=== PATIENT | female | born 2000 | race Asian ===

== ENCOUNTER 2024-05-20 17:29 | Emergency (ER) | payer BC ==
[~2024-05-20] VITALS: Ht 165.1 cm; Wt 99.4 kg
[2024-05-20 19:17] LABS: BASO % 0.2 % (0.0-1.0); EOS # 0.2 10^3/uL (0.0-0.5); EOS % 1.4 % (0.0-3.0); HEMATOCRIT 36.8 % (36.0-47.0); HEMOGLOBIN 11.9 g/dl (12.0-15.5); LYMPH # 3.4 10^3/uL (1.5-5.0); LYMPH % 28.3 % (24.0-44.0); MEAN CORPUSCULAR HEMOGLOBIN 27.3 pg (27.0-33.0); MEAN CORPUSCULAR HGB CONC 32.3 g/dl (32.0-36.5); MEAN CORPUSCULAR VOLUME 84.4 fl (80.0-96.0); MONO # 0.8 10^3/uL (0.0-0.8); MONO % 6.3 % (2.0-8.0); NEUTROPHILS # 7.6 10^3/uL (1.5-8.5); NEUTROPHILS % 63.5 % (36.0-66.0); PLATELET COUNT, AUTOMATED 254 10^3/uL (150-450); RED BLOOD COUNT 4.36 10^6/uL (4.00-5.40)
[2024-05-20 19:18] LABS: KETONE, URINE AUTO RFX NEGATIVE (NEGATIVE)
[2024-05-20 19:38] LABS: LIPASE 25 U/L (12-53)
[2024-05-20 19:40] LABS: LEUKOCYTE ESTERASE UR AUTO RFX TRACE (NEGATIVE)
[2024-05-20 19:41] LABS: ALBUMIN 3.7 G/DL (3.2-5.2); ALKALINE PHOSPHATASE 88 U/L (35-104); ALT/SGPT 24 U/L (7.0-40); AST/SGOT 15 U/L (<34); BILIRUBIN,DIRECT < 0.1 MG/DL (<0.4); BILIRUBIN,TOTAL 0.3 MG/DL (0.3-1.2); BLOOD UREA NITROGEN 10 MG/DL (9-23); CALCIUM LEVEL 8.9 MG/DL (8.5-10.1); CARBON DIOXIDE LEVEL 24 MMOL/L (20-31); CHLORIDE LEVEL 108 MMOL/L (98-107); CREATININE FOR GFR 0.43 MG/DL (0.55-1.30); GLOMERULAR FILTRATION RATE > 60.0 (>60); GLUCOSE, FASTING 81 MG/DL (60-100); POTASSIUM SERUM 4.5 MMOL/L (3.5-5.1); SODIUM LEVEL 140 MMOL/L (136-145); TOTAL PROTEIN 7.1 G/DL (5.7-8.2)
[2024-05-20 19:49] LABS: HCG, SERUM QUALITATIVE NEGATIVE (NEGATIVE)
[2024-05-20 20:25] LABS: Trichomonas vaginalis (AMP) NOT DETECTED (NEGATIVE)
[2024-05-20 20:49] LABS: GC DNA AMPLIFICATION NEGATIVE (NEGATIVE)
[2024-05-21] MEDS ORDERED: ISOVUE-370 76% 100ML VIAL As Ordered ONE (00:43)
[2024-05-21] MEDS: KETOROLAC 30 MG/ML 1ML VIAL IV ONE (01:20)
[2024-05-21] MEDS: ONDANSETRON 4MG 2ML VIAL IV ONE (01:20)
[2024-05-21] MEDS ORDERED: MIRA3350 PO (01:52)
[2024-05-21 02:07] VITALS: BP 107/56; TEMP 96.7; O2SAT 99
== END 2024-05-21 02:04 | disposition home or self-care (01) ==
LOC: M ED 17:29
DX: K59.00 Constipation, unspecified (principal)
CPT/HCPCS: 74177; 80048; 80076; 81001; 83690; 84703; 85025; 87086; 87661; 87810; 87850; 96374; 99284; J1885; J2405; Q9967

== ENCOUNTER → 2024-06-07 | Outpatient (CLI) | payer BC ==
[~2024-06-07] MED LIST: MIRA3350 PO
== END ==
LOC: M RAD 11:20
PROVIDERS: ATTEND Student in an Organized Health Care Education/Training Program
DX: M54.2 Cervicalgia (principal)

== ENCOUNTER → 2024-08-06 | Outpatient (CLI) | payer BC | LOC: M RAD 15:41 | PROVIDERS: ATTEND Family Medicine Addiction Medicine | DX: R22.9 Localized swelling, mass and lump, unspecified (principal) ==

== ENCOUNTER → 2024-09-19 | Outpatient (CLI) | payer BC | LOC: M LAB 14:21 | PROVIDERS: ATTEND Nurse Practitioner | DX: N92.0 Excessive and frequent menstruation with regular cycle (principal) ==

== ENCOUNTER → 2024-09-20 | Outpatient (CLI) | payer BC ==
[~2024-09-20] MED LIST changes: +PROHANCE 279.3MG/ML 15ML VIAL As Ordered ONE; +PROHANCE 279.3MG/ML 5ML VIAL As Ordered ONE
== END ==
LOC: M RAD 08:19
PROVIDERS: ATTEND Student in an Organized Health Care Education/Training Program
DX: M54.2 Cervicalgia (principal); R22.9 Localized swelling, mass and lump, unspecified; Z53.9 Procedure and treatment not carried out, unspecified reason

== ENCOUNTER 2025-04-13 01:35 | Emergency (ER) | payer BC ==
[~2025-04-13] VITALS: Ht 165.1 cm; Wt 100.0 kg
[~2025-04-13 01:35] MED LIST changes: -PROHANCE 279.3MG/ML 15ML VIAL As Ordered ONE; -PROHANCE 279.3MG/ML 5ML VIAL As Ordered ONE
[2025-04-13 04:46] LABS: BASO # 0.0 10^3/uL (0.0-0.2); BASO % 0.2 % (0.0-1.0); EOS # 0.1 10^3/uL (0.0-0.5); EOS % 0.7 % (0.0-3.0); LYMPH # 4.3 10^3/uL (1.5-5.0); LYMPH % 34.6 % (24.0-44.0); MONO # 0.8 10^3/uL (0.0-0.8); MONO % 6.2 % (2.0-8.0); NEUTROPHILS # 7.2 10^3/uL (1.5-8.5); NEUTROPHILS % 58.1 % (36.0-66.0); PLATELET COUNT, AUTOMATED 265 10^3/uL (150-450)
[2025-04-13 04:48] LABS: KETONE, URINE AUTO RFX NEGATIVE (NEGATIVE); LEUKOCYTE ESTERASE UR AUTO RFX NEGATIVE (NEGATIVE); MUCUS, URINE RFX SMALL (NEGATIVE); NITRITE, URINE AUTO RFX NEGATIVE (NEGATIVE); RBC, URINE AUTO RFX 0 /HPF (0-3); SQUAM EPITHELIAL CELL UR AURFX 1 /HPF (0-6); URINE PREG TEST NEGATIVE (NEGATIVE); WBC, URINE AUTO RFX 0 /HPF (0-3)
[2025-04-13 05:12] LABS: ALT/SGPT 23 U/L (7.0-40); AST/SGOT 17 U/L (<34); CALCIUM LEVEL 8.9 MG/DL (8.5-10.1); CARBON DIOXIDE LEVEL 25 MMOL/L (20-31); CHLORIDE LEVEL 108 MMOL/L (98-107); CREATININE FOR GFR 0.61 MG/DL (0.55-1.30); GLOMERULAR FILTRATION RATE > 90.0 (>60); POTASSIUM SERUM 4.2 MMOL/L (3.5-5.1); SODIUM LEVEL 142 MMOL/L (136-145)
[2025-04-13 07:19] VITALS: BP 124/76; TEMP 97.7; O2SAT 100
== END 2025-04-13 07:30 | disposition home or self-care (01) ==
LOC: M ED 01:35
DX: R25.1 Tremor, unspecified (principal)

== ENCOUNTER → 2025-05-06 | Outpatient (REF) | payer BC ==
[2025-05-06 17:10] LABS: BASO # 0.0 10^3/uL (0.0-0.2); BASO % 0.3 % (0.0-1.0); EOS # 0.1 10^3/uL (0.0-0.5); EOS % 0.7 % (0.0-3.0); LYMPH # 2.5 10^3/uL (1.5-5.0); LYMPH % 28.1 % (24.0-44.0); MONO # 0.5 10^3/uL (0.0-0.8); MONO % 6.0 % (2.0-8.0); NEUTROPHILS # 5.7 10^3/uL (1.5-8.5); NEUTROPHILS % 64.7 % (36.0-66.0); PLATELET COUNT, AUTOMATED 270 10^3/uL (150-450)
[2025-05-06 17:31] LABS: IRON (FE) 44.0 UG/DL (50-170)
== END ==
LOC: M LAB REF 16:30
PROVIDERS: ATTEND Student in an Organized Health Care Education/Training Program
DX: D64.9 Anemia, unspecified (principal)

== ENCOUNTER → 2025-05-09 | Outpatient (CLI) | payer BC | LOC: M EKG 14:12 | DX: R42 Dizziness and giddiness (principal) ==